=== PATIENT | female | born 1970 | race Caucasian/White ===

== ENCOUNTER 2016-07-01 11:05 | Emergency (ER) ==
--- NOTE | 2016-07-01 11:47 | PROVIDER DOCUMENTATION ---
HPI-General Adult - General Chief Complaint: UTI Symptoms Stated Complaint: UTI SX Time Seen by Provider: 07/01/16 11:24 Source: patient Allergies/Adverse Reactions: Patient Allergies Allergy/AdvReac Type Severity Reaction Status Date / Time metoclopramide HCl * AdvReac Mild Unknown Verified 07/01/16 11:48 [From [facility]] Home Medications: Home Medication List Medication Instructions Recorded Confirmed Last Taken Type Mesalamine Supp [Canasa Supp] 1,000 mg FL HS #30 supp 12/17/15 07/01/16 Rx Omeprazole [Prilosec] 40 mg PO DAILY@0700 #30 capsule 12/17/15 07/01/16 Rx Bupropion HCl [Bupropion Xl] 150 mg PO BID 07/01/16 07/01/16 07/01/16 05:00 History Menthol/Zinc Oxide Ointment 1 applicatn TOP QHS 07/01/16 07/01/16 Unknown History [Calmoseptine Ointment] Mesalamine D.r. [Lialda] 1.2 gm PO DAILY 07/01/16 07/01/16 06/30/16 History Nitrofurantoin Macrocrystal 100 mg PO BID #20 capsule 07/01/16 Unknown Rx [Nitrofurantoin] Phenazopyridine HCl [Pyridium] 100 mg PO TID #6 tablet 07/01/16 Unknown Rx Promethazine [Phenergan] 25 mg PO Q6H PRN PRN #20 tablet 07/01/16 Unknown Rx - History of Present Illness -Gen Adult Nature of Presenting Problems: 46 y/o y/o F c/o abd. pain, cough, dysuria x 1 day. Pt states that she has a hx of UC and has had nausea and vomiting over last day. Reports pain in RLQ, RUQ, epigastric, LUQ pain with R flank pain. Denies fever/chills, but states has broken out into sweats. Pt has not had influenza vaccine. Review of Systems - Adult - REVIEW OF SYSTEMS - ADULT Constitutional: reports: no symptoms reported. denies: chills, fever Eyes: reports: no symptoms reported. denies: blurred vision, double vision Ears, Nose, Mouth & Throat: reports: no symptoms reported. denies: ear pain, nose pain Cardiovascular: reports: no symptoms reported. denies: chest pain, palpitations Respiratory: reports: no symptoms reported. denies: dyspnea on exertion, shortness of breath Gastrointestinal: reports: see HPI, abdominal pain, nausea, vomiting. denies: constipation, diarrhea Genitourinary: reports: see HPI, dysuria, flank pain. denies: frequency Musculoskeletal: reports: no symptoms reported. denies: joint pain, joint swelling Integumentary: reports: no symptoms reported. denies: nail changes, rash Neurological: reports: no symptoms reported. denies: numbness, paresthesia Psychiatric: reports: no symptoms reported Endocrine: reports: no symptoms reported. denies: cold intolerance, heat intolerance Hematologic/Lymphatic: reports: no symptoms reported. denies: easy bruising, prolonged bleeding Allergic/Immunologic: reports: no symptoms reported All Other Systems: Reviewed and Negative Past History - Adult - PAST MEDICAL HISTORY-ADULT Review of Records: reports: Nursing Assessment Review, Medications Reviewed Major Childhood Illnesses: reports: denies history Cardiovascular: reports: denies history Respiratory: reports: denies history Gastrointestinal: reports: inflammatory bowel disease, ulcer (uclerative cellulitis) Obstetrical/Gynecological: reports: denies history Genitourinary: reports: denies history Musculoskeletal: reports: denies history Neurological: reports: headaches/migraines Psychiatric: reports: depression Endocrine/Immune: reports: denies history Other Conditions: reports: denies history - PRIOR SURGERIES/PROCEDURES Surgical/Procedure History: reports: hysterectomy, other (nasal Sx) - IMMUNIZATION STATUS Childhood Immunizations: UTD Flu Vaccine: See Nurse Assessment Physical Exam-General - PHYSICAL EXAM-ADULT Initial Vital Signs Reviewed: Yes - CONSTITUTIONAL General Appearance: alert, mild distress - EYES Eyes: pink conjunctivae - HEAD, EARS, NOSE, MOUTH & THROAT HENMT: normocephalic/atraumatic, moist mucous membranes - NECK Neck: normal inspection - RESPIRATORY Respiratory: lungs clear, normal breath sounds. negative: crackles, rales, rhonchi, stridor, wheezing - CARDIOVASCULAR Cardiovascular: regular rate, rhythm. negative: bradycardia, tachycardia - GASTROINTESTINAL (ABDOMEN) Abdominal Exam: normal bowel sounds, soft, tenderness (RLQ, RUQ, epigastric, LUQ ). negative: distended, guarding, rigid, rebound - MUSCULOSKELETAL Back Exam: CVA tenderness (R, mild) Extremity: normal gait - SKIN Integumentary: normal color, normal turgor, warm/dry - NEUROLOGIC Neurologic: negative: aphasia - PSYCHIATRIC Psych/Mental Status: normal mood/affect, normal thought content, normal thought process, oriented x 3 Progress - CT/MRI 1 CT Study: Abdomen, Pelvis Impression: See EMR Report (stable since 2015, per Dr. Mcdonald) Departure - Departure Time of Disposition Order: 13:50 DIAGNOSIS: UTI (urinary tract infection) Qualifiers: Urinary tract infection type: acute cystitis Hematuria presence: with hematuria Qualified Code(s): N30.01 - Acute cystitis with hematuria Abdominal pain Qualifiers: Abdominal location: unspecified location Qualified Code(s): R10.9 - Unspecified abdominal pain Disposition: HOME 01 Certified Medical Emergency: Emergent Condition: Stable Additional Instructions: Take medications as directed. Follow up with GI specialist for further evaluation of abdominal pain. Return if symptoms get worse. ED Follow Up Instructions: You have been treated by a care provider in the Emergency Department. These instructions are being provided to you so you can have an understanding of how to care for yourself upon discharge. Upon discharge from the Emergency Department, you are responsible for making arrangements for follow-up care by a physician of your choice. Take all prescribed medications as directed. Return to the Emergency Department immediately for any new or worsening symptoms. You may call the Physician Referral phone number at [phone] to obtain a list of Physicians who are taking new patients. Prescriptions: Nitrofurantoin Macrocrystal [Nitrofurantoin] 100 mg PO BID #20 capsule Promethazine [Phenergan] 25 mg PO Q6H PRN PRN #20 tablet PRN Reason: Nausea Phenazopyridine HCl [Pyridium] 100 mg PO TID #6 tablet Referrals: Ligia Cruz MD [Primary Care Provider] - Wiliam Roberts MD [STAFF PHYSICIAN] - Attestation - Physician/ YAJAIRA Attestation Patient care was provided by Advanced Practice Provider:: Yes Advanced Practice Provider:: Chaparrita Jasso Advanced Practice Provider documentation review:: The Mid-level provider documentation, treatment plan and medical decision making was reviewed by the physician who agrees with all treatment and medical decision making by the [facility].
[2016-07-01 12:04] LABS: MANUAL DIFF NEEDED? NO; URINE CULTURE NEEDED? NO; URINE MICRO REVIEW NEEDED? NO; URINE SOURCE CLEAN CATCH
[2016-07-01 12:18] LABS: BASO% 0.3 % (0.0-0.8); BILIRUBIN URINE NEGATIVE (NEGATIVE); BLOOD URINE MODERATE (NEGATIVE); COLOR YELLOW; EOS# 0.18 X1000 (0.0-0.7); EOS% 1.6 % (0.0-10.0); GLUCOSE URINE NEGATIVE (NEGATIVE); HEMATOCRIT 40.4 % (37.0-47.0); HEMOGLOBIN 13.6 g/dL (12.0-16.0); IMM GRAN# 0.02 X1000 (0.0-0.04); IMM GRAN% 0.2 % (0.0-0.5); LEUKOCYTES URINE MODERATE (NEGATIVE); LYMPH# 1.32 X1000 (1.2-3.4); LYMPH% 11.6 % (20.5-51.1); MCH 29.2 PG (27-31); MCHC 33.7 g/dL (33-37); MCV 86.7 FL (81-99); MONO# 0.57 X1000 (0.11-0.59); MPV 11.2 FL (7.4-10.4); NEUT% 81.3 % (42.2-75.2); NITRITE URINE NEGATIVE (NEGATIVE); PLT 273 X1000 (130-400); PROTEIN URINE TRACE mg/dL (NEGATIVE); RBC 4.66 XMIL (4.2-5.4); SP GRAVITY URINE 1.007; TURBIDITY URINE CLEAR (CLEAR); UROBILINOGEN URINE NORMAL (NORMAL)
[2016-07-01 12:20] LABS: UR EPITHELIAL CELLS <10 /HPF (<10); URINE BACTERIA NEGATIVE /HPF; URINE WBC TNTC /HPF (<10)
[2016-07-01 12:36] LABS: AGAP 12; ALBUMIN 4.3 g/dL (3.5-5.0); ALKALINE PHOSPHATASE 65 U/L (32-104); AMYLASE 10 U/L (20-200); BUN 10 mg/dL (8-22); CALCIUM 9.2 mg/dL (8.8-10.2); CHLORIDE 102 mmol/L (98-107); COSMO 281; GOT 15 U/L (10-30); GPT 18 U/L (10-36); LIPASE 33 U/L (13-60); POTASSIUM 3.3 mmol/L (3.5-5.1); SODIUM 141 mmol/L (136-145); TCO2 27 mmol/L (25-35); TOTAL BILIRUBIN 0.46 mg/dL (0.20-1.00)
[2016-07-01] MEDS ORDERED: ROCEPHIN 1 GM/NS 50 ML IV ONE (13:49)
[2016-07-01] MEDS ORDERED: NS 500 ML IV ONE (13:49)
--- NOTE | 2016-07-01 14:00 | Diag Imaging Result Document ---
PROCEDURE NAME: CT ABD/PELVIS W/ IV CONT ONLY - 07/01/2016 CT OF THE ABDOMEN WITH INTRAVENOUS CONTRAST: FINDINGS: The visualized portion of the chest is unremarkable. The spleen, adrenal glands, and pancreas are within normal limits. There is a cyst in the head of the pancreas which has not changed significantly since the previous study of 12/16/2015, measuring 9 mm in diameter. The kidneys are without evidence of hydronephrosis or mass. There are no apparent gallstones. The liver is stable in appearance. There is no evidence of appendicitis. CT OF THE PELVIS WITH INTRAVENOUS CONTRAST: FINDINGS: There are no masses. There are no abnormal fluid collections. There has been hysterectomy. There is no evidence of colonic mucosal thickening. There is a fair amount of stool throughout the visualized portions of the colon. IMPRESSION: No evidence of colitis. Constipation. Overall stable since 12/16/2015.
[2016-07-01 15:21] VITALS: BP 126/60
== END 2016-07-01 15:21 | disposition home or self-care (01) ==
LOC: ED 11:05
DX: N30.01 Acute cystitis with hematuria (principal); R10.9 Unspecified abdominal pain; K59.00 Constipation, unspecified; R05 Cough; R30.0 Dysuria; R11.2 Nausea with vomiting, unspecified; R10.31 Right lower quadrant pain; R10.11 Right upper quadrant pain; R10.13 Epigastric pain; R10.12 Left upper quadrant pain; R10.813 Right lower quadrant abdominal tenderness; R10.811 Right upper quadrant abdominal tenderness; R10.816 Epigastric abdominal tenderness; R10.812 Left upper quadrant abdominal tenderness; M54.9 Dorsalgia, unspecified; K51.90 Ulcerative colitis, unspecified, without complications; F32.9 Major depressive disorder, single episode, unspecified; Z79.899 Other long term (current) drug therapy
CPT/HCPCS: 74177; 80053; 81001; 82150; 83690; 85025; J0696; J7040; Q9967